=== PATIENT | female | born 1985 | race Caucasian/White ===

== ENCOUNTER 2021-02-15 20:25 | Emergency (ER) | payer OTHER, SELFPAY ==
--- NOTE | ~2021-02-15 | CT_ITS ---
EXAMINATION: CTA chest PE protocol EXAM DATE: 02/15/2021 23:50 INDICATION: Back pain elevated dimer. TECHNIQUE: Spiral CTA of the chest (pulmonary arteries) was performed with 100 cc Omnipaque 350 intr avenous contrast injection. Images were acquired during the pulmonary arterial phase. Coronal maxi mum intensity projection 3D-reconstructions were created by the technologist on dedicated workstation . Axial, coronal and sagittal reformatted images were reviewed. The dose-length product (DLP) for t his examination was 973.93 mGy-cm. The exposure was tailored according to patient size (auto mA exp osure control), and iterative reconstruction (ASIR) was used as additional dose reduction technique. There is no prior study for comparison. FINDINGS: Pulmonary arteries are well opacified and without intraluminal filling defects. No thora cic aortic dissection. There is 5 mm left lower lobe nodule, likely noncalcified granuloma. There a re no pleural or pericardial effusions. Tracheobronchial tree is patent. Axillary lymph nodes wit h sizable fatty kelton, consistent with reactive etiology. There is no pneumothorax. Heart normal in size. No evidence of coronary arterial calcification. Upper abdomen is unremarkable. There is t horacic spondylosis without osteoblastic or osteolytic lesions identified. IMPRESSION: No acute cardiopulmonary findings. Reviewed, dictated and finalized at location A. WARE TRAINER
--- NOTE | ~2021-02-15 | CT_ITS ---
EXAMINATION: CT abdomen pelvis wo con EXAM DATE: 02/15/2021 22:32 INDICATION: Right flank pain. TECHNIQUE: Spiral CT of the abdomen and pelvis was performed without contrast. Axial, coronal and sag ittal images were reviewed. The dose-length product (DLP) for this examination was 1039.27 mGy-cm. The exposure was tailored according to patient size (auto mA exposure control), and iterative reconst ruction (ASIR) was used as additional dose reduction technique. Comparison is made to prior examinati on from 2013. FINDINGS: There is no nephrolithiasis or hydronephrosis. There is IUD which appears to be centrally located within the endometrium, expected position. The bladder is unremarkable. The liver, spleen, adrenal glands and pancreas are unremarkable. Gallbladder is unremarkable. No biliary obstruction. There is no retroperitoneal or pelvic lymphadenopathy. The appendix is normal. The stomach and small bowel are unremarkable. There is expected amount of c olonic stool. No free intraperitoneal gas. The heart is normal in size. There are no pericardial or pleural effusions. There is 3 mm left lower lobe granuloma unchanged. There are no osteoblastic or osteolytic lesions identified. IMPRESSION: 1. No nephrolithiasis, hydronephrosis or acute intra-abdominal findings. Reviewed, dictated and finalized at location A. NICAL SALES DIRECTOR
[2021-02-15 20:31] VITALS: BP 168/83; PULSE 82; RESP 17; TEMP 36.1; O2SAT 99
[2021-02-15 20:49] LABS: Hematocrit 41.7 % (37.0-47.0); Mean Corpuscular HGB Conc 31.2 g/dl (32-36); Mean Corpuscular Hemoglobin 25.1 pg (26-34); Mean Corpuscular Volume 80.5 fl (80-100); Mean Platelet Volume 10.5 fl (7.4-10.4); Platelet Count Result 426 k/mm3 (150-375); Red Blood Count 5.18 M/mm3 (4.2-5.4); Red Cell Distribution Width 15.9 % (11.5-14.5); White Blood Count 14.6 K/mm3 (4.5-10.0)
[2021-02-15 21:01] LABS: Alanine Aminotransferase 18 U/L (4-35); Albumin Level 4.2 g/dL (3.5-5.1); Alkaline Phosphatase 107 U/L (38-126); Anion Gap 6 mmol/L (8-16); Aspartate Amino Transferase 22 U/L (14-36); Bilirubin,Total 0.2 mg/dL (0.2-1.3); Blood Urea Nitrogen 16 mg/dL (7-17); Calcium 8.9 mg/dL (8.4-10.2); Carbon Dioxide 28 mmol/L (22-30); Chloride 103 mmol/L (98-107); Estimated CRCL calculation 122 ml/min; Estimated Glomerular Filt Rate > 60; Glucose 102 mg/dL (65-110); Sodium 137 mmol/L (137-145)
[2021-02-15 21:07] LABS: Add Urine Microscopic? YES; Appearance Urine Clear (Clear); Bacteria Urine Trace /hpf; Bilirubin Urine Negative (Negative); Blood Urine Negative (Negative); Color Urine Yellow (Yellow); Glucose Urine UA Negative (Negative); Ketones Urine Negative (Negative); Leukocyte Esterase Ur Trace LEU/UL (Negative); Mucus Urine Rare /lpf; Nitrate Urine Negative (Negative); Protein Urine Negative (Negative); RBC Urine 0-2 /hpf (0-2); Specific Grav Ur 1.024 (1.001-1.035); Squamous Epithelial Cell Urine Occasional /hpf (Few); Urobilinogen Urine Negative mg/dL (<2.0); WBC Urine 0-3 /hpf
[2021-02-15 21:18] LABS: Band Neutrophils Percent 1 % (0-6); Eosinophils Absolute Manual 0.29 K/mm3 (0.02-0.5); Eosinophils Percent Manual 2 % (0-4); Lymphocytes Absolute Manual 3.35 K/mm3 (1.1-4.5); Monocytes Absolute Manual 0.87 K/mm3 (0.1-0.90); Monocytes Percent Manual 6 % (3-9); Neutrophils Absolute Manual 10.07 K/mm3 (1.7-7.2); Neutrophils Percent Manual 68 % (46-73); Platelet Estimate Increased (Adequate); Total Cells Counted 100
[2021-02-15 21:48] VITALS: BP 136/74; PULSE 77; RESP 18; O2SAT 99
[2021-02-15] MEDS: SODIUM CHLORIDE 0.9% IV 1,000 ML 999 ML IV CONT (22:35)
[2021-02-15] MEDS: ONDANSETRON INJ 4 MG/2 ML VIAL (22:35)
[2021-02-15 22:44] VITALS: BP 134/74; PULSE 77; RESP 16; O2SAT 99
[2021-02-15 22:56] LABS: D Dimer 0.54 ug/mL (<0.48)
[2021-02-15] MEDS: KETOROLAC 15 MG/ML VIAL (*BKC) IV PUSH (22:56)
--- NOTE | 2021-02-16 00:04 | ED.ABDPAIN ---
HPI - Abdominal Pain General Chief Complaint: Abdominal Pain Stated Complaint: right flank pain Time Seen by Provider: 02/15/21 21:54 Source: patient History of Present Illness HPI narrative: Patient presents with right kidney pain. Patient ports pain started about a week ago has been getting progressively worse causing some nausea she had one episode of emesis. She denies any diarrhea or constipation. She reports pain is worse with certain body positions pain caused some shortness of breath. Pain is also worsened with deep inspiration. Reports prior history of renal stones and symptoms are somewhat similar. She denies any urinary symptoms. She has prior history of blood clots recent hospitalizations, recent trauma, estrogen therapy use Related Data Home Medications Medication Instructions Recorded Confirmed No Home Medications 02/15/21 02/15/21 Allergies Allergy/AdvReac Type Severity Reaction Status Date / Time No Known Allergies Allergy Unverified 02/15/21 20:34 Review of Systems Review of Systems: CONSTITUTIONAL: Denies fever, chills, or sweats. EYES: Denies visual changes, redness, or discharge. ENT: Denies rhinorrhea, congestion, sore throat, or otalgia. CARDIOVASCULAR: Denies chest pain, palpitations, or edema. RESPIRATORY: Denies cough or dyspnea. GASTROINTESTINAL: Denies abdominal pain, nausea, vomiting, or diarrhea. GENITOURINARY: Denies dysuria or hematuria. SKIN: Denies rash or itching. MUSCULOSKELETAL: Denies back pain, joint pain, or myalgia. NEUROLOGIC: Denies headache, numbness, dizziness, or weakness. PSYCHIATRIC: Denies anxiety or depression. All systems reviewed & are unremarkable except as noted in HPI and below PMFSH Past Medical History Medical History (Updated 02/16/21 @ 01:04 by Steven Chowdhury MD) Calculus, ureteral (~02/16/21) Family History Family History Sibling Diabetes mellitus Social History Social History Smoking status: Former smoker Second hand tobacco smoke exposure: No Substance use: never Gender identity (if verbalized by the patient): Female Spiritual care concerns: No Exam Narrative: GENERAL: Well-appearing, well-nourished, and in no acute distress. HEAD: Normocephalic, atraumatic. EYES: PERRLA and EOMI. ENT: Nares clear, no rhinorrhea or epistaxis. Mucous membranes moist. NECK: Supple. No masses. No JVD CHEST: Clear to auscultation. No respiratory distress. No wheezes rales or rhonchi HEART: Regular rate and rhythm. No murmur heard. Normal peripheral pulses. ABDOMEN: Soft, nontender, nondistended, normal active bowel sounds. EXTREMITIES: Normal range of motion. No edema. SKIN: Warm, dry, no rash. NEURO: No focal deficits. Alert and oriented x3. PSYCH: Normal mood and affect. Course Reevaluation(s) Reevaluation #1: Patient reports feeling much improved. Results and plan reviewed with patient patient is comfortable outpatient plan. Date: 02/16/21 Time: 00:59 Vital Signs Vital signs: Vital Signs Temperature 36.1 C L 02/15/21 20:31 Pulse Rate 82 02/15/21 20:31 Respiratory Rate 17 02/15/21 20:31 Blood Pressure 168/83 H 02/15/21 20:31 Pulse Oximetry 99 02/15/21 20:31 Temperature 36.1 C L 02/15/21 20:31 Pulse Rate 74 02/16/21 01:13 Respiratory Rate 20 02/16/21 01:13 Blood Pressure 136/74 02/16/21 01:13 Pulse Oximetry 99 02/16/21 01:13 MDM - Abdominal Pain MDM Narrative Medical decision making narrative: H&P as above, vss, pt looks clinically well, exam reassuring, labs with elevated dimer and white count otherwise clinically unremarkable, img clinically unremarkable, additional labs/img considered, symptomatic relief available as needed, on reevaluation pt continues to looks clinically well. Symptoms remain of unclear etiology may be musculoskeletal in nature, dns ureteral stone, pyelonephritis,
[2021-02-16 01:13] VITALS: BP 136/74; PULSE 74; RESP 20; O2SAT 99
== END 2021-02-16 01:15 | disposition home or self-care (01) ==
PROVIDERS: Emergency Provider Emergency Medicine; PCP Nurse Practitioner Family
DX: M54.9 Dorsalgia, unspecified (principal); Z87.442 Personal history of urinary calculi; Z87.891 Personal history of nicotine dependence
CPT/HCPCS: 36415; 71275; 74176; 80053; 81001; 81025; 85025; 85380; 96361; 96374; 96375; 99284; J1885; J2405; J7030; Q9967